=== PATIENT | male | born 1985 | race Two or more races ===

== ENCOUNTER 2022-05-28 21:02 | Emergency (ER) | payer OTHER ==
[~2022-05-28] VITALS: Ht 185.4 cm; Wt 70.3 kg
[2022-05-29] MEDS ORDERED: BACTRIM 400-801 EACH PO (00:27)
== END 2022-05-29 00:35 | disposition home or self-care (01) ==
LOC: ER 21:02
DX: M79.671 Pain in right foot (principal)